=== PATIENT | male | born 1945 | race Two or more races ===

== ENCOUNTER 2024-01-29 10:30 | Day surgery (SDC) | payer MEDICARE, MEDICAID, SELFPAY ==
[2024-01-27 07:54] VITALS: BMI 28.8
[2024-01-27 09:13] LABS: Alanine Aminotransferase 13 U/L (10-49); Albumin, Serum 4.5 gm/dL (3.4-4.8); Albumin/Globulin Ratio 1.6 (1.2-2.2); Alkaline Phosphatase 97 U/L (46-116); Anion Gap 6 (7-16); Aspartate Amino Transferase 17 U/L (0-34); BUN/Creatinine Ratio 16 Ratio (12-20); Bilirubin,Total 0.8 mg/dL (0.3-1.2); Blood Urea Nitrogen 13 mg/dL (9-23); Calcium 10.1 mg/dL (8.3-10.6); Calcium (Corrected) 10.1 mg/dL (8.5-10.1); Carbon Dioxide 27.9 mMol/L (20.0-31.0); Chloride 104 mMol/L (98-107); Creatinine (Component) 0.8 mg/dL (0.6-1.3); Estimated Creatinine Clearance 73.7 mL/min (>60); Globulin 2.9 gm/dL (2.3-3.5); Glucose 118 mg/dL (74-106); Osmolality,Calculated 276 (275-295); Sodium 138 mMol/L (136-145); Total Protein 7.4 gm/dL (5.7-8.2); eGFR > 60 See Note
--- NOTE | 2024-01-28 14:58 | SUR.PREOP ---
Voice message left for pt's daughter to bring pt at 1030 tomorrow for surgery.
[2024-01-29] VITALS (9 sets, daily range): BP systolic 126–151; BP diastolic 56–84; PULSE 70–79; RESP 12–20; TEMP 36.6–37; O2SAT 95–100; BMI 28.0
[2024-01-29] MEDS: OXYMETAZOLINE NAS SPRY 0.05% 15 ML BTL 3 SPRAY NASAL (12:22)
[2024-01-29] MEDS: RINGERS LACTATED 500 ML 500 ML 20 ML IV (12:28)
--- NOTE | 2024-01-29 15:40 | SUR.PHASEI ---
1786 Patient arrived to recovery resting comfortably in [facility], LMA removed upon arrival to recovery by anesthesia provider, drowsy and responding to verbal commands, breathing unlabored, vital signs stable, denies pain, dressing intact to below nose; nasal bridal- gauze and paper tape, no bleeding noted, lung sounds clear upon auscultation, bilateral radial pulses present when palpated, report received from Dr. Kandis HUTCHINSON
--- NOTE | 2024-01-29 15:41 | PD.SUROPNT ---
Date of Procedure 01/29/24 Pre Op Diagnosis Nasal septal deviation Bilateral inferior turbinate hypertrophy Post Op Diagnosis Nasal septal deviation Bilateral inferior turbinate hypertrophy Procedure Intranasal septoplasty Bilateral submucous resection of inferior turbinates Findings Nasal septal deviation to the right with enlarged inferior turbinates, spurring to the left along the floor. Procedure Description Patient was transferred to the operative suite where he was anesthetized and intubated per LMA. Timeout was performed and the patient was sterilely draped. Nasal septum was injected with 1% lidocaine with 1 100,000 dilution epinephrine as were the inferior turbinates. Approximately 7 cc total were used. Caudal rim incision was made on the left side of the septum mucosal flap elevated off the septal cartilage and bone. Inferior tunnel was created with a caudal elevator. Perpendicular plate was from the quadrangular cartilage with a freer elevator mucosal flap elevated off the right side. Deviated perpendicular plate was removed with a [employer] forceps. There is still some cartilaginous deviation to the left side posteriorly this was scored with the cartilage knife and allowed it to return closer to midline. The cartilaginous spur on the left side is removed with the caudal elevator. Mucosal flaps were reapproximated to the underlying cartilage with a 4-0 plain gut suture. Later Cruz splints were inserted and sutured in place with 3-0 silk suture. Prior to placing the Cruz splints the inferior turbinates reduced in a submucosal plane with a 2.9 mm turbinate shaver blade. Dissection was formed on the insertion as well as withdrawal. The left side is following first followed by the right side. Entry sites were then cauterized with suction cautery. Patient awakened and taken the recovery room in stable condition Anesthesia other (General Per LMA) Pathology / specimen None Estimated Blood Loss 10 Surgeon Aleks Pike DO Surgical Staff Operation Date: 01/29/24 12:45 <No data on this case meets the specified criteria>
--- NOTE | 2024-01-29 16:43 | SUR.PHASEII ---
patient eating jello tolerating well
--- NOTE | 2024-01-29 17:10 | SUR.PHASEII ---
1710 Patient meets discharge criteria from recovery, awake and alert, breathing unlabored, vital signs stable, denies pain, dressing intact; scant amount of blood noted, patient has his daughter educated of post op bleeding and when to seek medical attention, both receptive, patient ate two jello's and drinking apple juice, denies nausea, patient assisted with dressing into his clothing by his , patient signed limited proficiency statement for his daughter to translate Kinyarwanda to him, discharge instructions given to patient and patients daughter, daughter signed discharge instructions. Patient given all her belongings prior to discharge, transported via wheelchair and left in a private vehicle.
== END 2024-01-29 17:10 | disposition home or self-care (01) ==
PROVIDERS: PCP Physician Assistant; Referring Provider Otolaryngology; Visit Provider Otolaryngology
PROC: (CPT 30520; principal; 2024-01-29 12:30)
DX: J34.2 Deviated nasal septum (principal); J34.3 Hypertrophy of nasal turbinates
CPT/HCPCS: 30130; 30520; 36415; 80053; A4217; A4649; J0461; J0690; J1100; J2250; J2371; J2405; J2704; J3010; J3490; J7040; J7120; A9270

== ENCOUNTER → 2024-02-20 | Outpatient (CLI) | payer MEDICARE, MEDICAID, SELFPAY ==
--- NOTE | 2024-02-20 08:00 | XR_ITS ---
Examination: MRI lumbar spine without contrast Date and time of exam: February 20, 2024 0825 hours INDICATIONS: Low back pain radiating down the right side beginning 2 months ago, difficulty urinating TECHNIQUE: Multiple MRI axial sagittal images lumbar spine FINDINGS: Grade 1 anterolisthesis L4 on L5 No lumbar fracture Moderate lumbar spondylosis Heterogeneous marrow signal visualized osseous structures Diffuse lumbar disc desiccation Diffuse lumbar disc narrowing, advanced L2-L3, moderate L3-L4, L5-S1 No spondylolisthesis L5-S1 7 mm extruded central paracentral disc displacing both S1 nerve roots L4-L5 severe spinal stenosis, axial image 5, 8 mm central lumbar disc bulge, facet arthropathy and thickening of ligamenta flava circumferentially narrowing the thecal sac L3-L4 4 mm central disc bulge L2-L3 3 mm left paracentral disc bulge L1-L2 no disc protrusion Impression: L5-S1 7 mm extruded central paracentral disc displacing both S1 nerve first L4-L5 severe overall spinal stenosis as above
== END | disposition home or self-care (01) ==
LOC: SMRI 07:48
PROVIDERS: PCP Physician Assistant; Referring Provider Physician Assistant; Visit Provider Physician Assistant
DX: M51.27 Other intervertebral disc displacement, lumbosacral region (principal); M48.061 Spinal stenosis, lumbar region without neurogenic claudication
CPT/HCPCS: 72148

== ENCOUNTER → 2024-09-23 | Outpatient (CLI) | payer MEDICARE, MEDICAID, SELFPAY ==
[2024-09-23 10:38] LABS: Collection Type, Urine Clean Catch; Squamous Epithelial Cell,Urine 0 /hpf (0-5)
[2024-09-23 11:18] LABS: Basophils # (Auto) 0.0 Thou/mm3 (0.0-0.2); Basophils % (Auto) 1 % (0-2.5); Eosinophils # (Auto) 0.4 Thou/mm3 (0.0-0.5); Eosinophils % (Auto) 5 % (0-10); Hematocrit 39.5 % (41.0-53.0); Hemoglobin 12.9 g/dL (13.5-16.0); Immature Granulocytes Auto 0.02 Thou/mm3 (0.00-0.00); Lymphocytes # (Auto) 2.3 Thou/mm3 (1.0-4.8); Lymphocytes % (Auto) 27 % (10-50); Mean Corpuscular HGB Conc 32.7 g/dl (31.0-37.0); Mean Corpuscular Hemoglobin 29.1 pg (25.0-35.0); Mean Corpuscular Volume 89 fL (80-100); Monocytes # (Auto) 0.4 Thou/mm3 (0.0-0.8); Monocytes % (Auto) 5 % (0-12); Neutrophils # (Auto) 5.3 Thou/mm3 (1.8-7.7); Neutrophils % (Auto) 62 % (37-80); Nucleated Red Blood Cell # 0.00 Thou/mm3 (0.00-0.00); Nucleated Red Blood Cell % 0 /100 WBC (0); Platelet Count 202 Thou/mm3 (140-440); RDW Standard Deviation 43.6 fL (35.1-43.9); Red Blood Count 4.43 Miln/mm3 (4.50-5.90); White Blood Count 8.6 Thou/mm3 (3.8-10.6)
[2024-09-23 11:19] LABS: Bilirubin,Urine Negative (Negative); Blood,Urine Trace (Negative); Clarity,Urine Clear (Clear/Hazy); Color,Urine Yellow (Lt Yel-Yel); Glucose, Urine Negative (Negative); Ketones,Urine Negative (Negative); Leukocyte Esterase,Urine Negative (Negative); Nitrite,Urine Negative (Negative); PH,Urine 6.5 (5.0-7.0); Protein,Urine Trace (Neg - Trace); RBC,Urine 6 /hpf (0-3); Specific Gravity,Urine 1.027 (1.001-1.035); Urobilinogen,Urine Negative mg/dL (0.0-1.0); WBC,Urine 1 /hpf (0-5)
[2024-09-23 11:21] LABS: Glucose Estimated Average 128 mg/dL (80-131); Hemoglobin A1C 6.1 % Hgb (4.8-6.0)
[2024-09-23 11:26] LABS: Vitamin D 25 Hydroxy Total 40.6 ng/mL (7.3-40.2)
[2024-09-23 11:27] LABS: Creatinine MALB Rnd Ur 188 mg/dL (30-125); Microalbumin Creat Ratio 37 mg/gCrea (<30); Microalbumin, Random Urine 70 mg/L (0-300)
[2024-09-23 11:28] LABS: Ferritin 37 ng/mL (10.5-307.3); Prostate Specific Antigen 2.37 ng/mL (0-4.00)
[2024-09-23 11:42] LABS: Alanine Aminotransferase 8 U/L (10-49); Albumin, Serum 4.2 gm/dL (3.4-4.8); Albumin/Globulin Ratio 1.3 (1.2-2.2); Alkaline Phosphatase 96 U/L (46-116); Anion Gap 4 (7-16); Aspartate Amino Transferase 17 U/L (0-34); BUN/Creatinine Ratio 14 Ratio (12-20); Bilirubin,Total 0.5 mg/dL (0.3-1.2); Blood Urea Nitrogen 13 mg/dL (9-23); Calcium 9.8 mg/dL (8.3-10.6); Calcium (Corrected) 9.8 mg/dL (8.5-10.1); Carbon Dioxide 28.2 mMol/L (20.0-31.0); Cardiac Risk Estimate 3.2 RATIO (4.0-6.7); Chloride 108 mMol/L (98-107); Cholesterol 146 mg/dL (132-200); Creatinine (Component) 0.9 mg/dL (0.6-1.3); Free T4 (Free Thyroxine) 1.06 ng/dL (0.89-1.76); Globulin 3.2 gm/dL (2.3-3.5); Glucose 144 mg/dL (74-106); HDL Cholesterol 45 mg/dL (40-60); LDL Cholesterol,Calculated 85 mg/dL (0-130); Osmolality,Calculated 282 (275-295); Potassium 4.6 mMol/L (3.4-5.1); Sodium 140 mMol/L (136-145); Thyroid Stimulating Hormone 0.93 uIU/mL (0.55-4.78); Total Protein 7.4 gm/dL (5.7-8.2); Triglycerides 81 mg/dL (30-150); eGFR > 60 See Note
== END | disposition home or self-care (01) ==
PROVIDERS: PCP Physician Assistant; Referring Provider Physician Assistant; Visit Provider Physician Assistant
DX: R73.03 Prediabetes (principal); E55.9 Vitamin D deficiency, unspecified; E78.5 Hyperlipidemia, unspecified; E66.3 Overweight; Z13.9 Encounter for screening, unspecified; R53.83 Other fatigue
CPT/HCPCS: 36415; 80053; 80061; 81001; 82043; 82306; 82570; 82728; 83036; 84153; 84439; 84443; 85025